=== PATIENT | male | born 1970 | race Caucasian/White ===

== ENCOUNTER → 2020-08-10 | Outpatient (CLI) | payer OTHER ==
--- NOTE | 2020-08-10 12:50 | Diagnostic Imaging Report ---
EXAMINATION: Thoracic spine at 12:21 PM. INDICATION: Back pain. TECHNIQUE/COMPARISON: Three views were obtained. There are no prior studies available for comparison. FINDINGS: The lateral view shows the vertebral body heights and alignment to be generally within normal limits. There is moderate degenerative disease throughout the thoracic spine, particularly in the lower thoracic region. There is no fracture or acute bony abnormality identified. There is no sign of a paraspinal mass. Incidental note is made of orthopedic plate and screw fixation devices securing long-standing fractures of the mid portions of the right 6th through 10th ribs. There are also healed slightly displaced fractures through the right 11th and 12th ribs. IMPRESSION: 1. There is no evidence for an acute bony abnormality. 2. There is moderate degenerative disease involving the thoracic spine, particularly the lower thoracic spine. 3. There are post surgical and post traumatic changes involving the bony thorax on the right. Dictated by: Dictated on workstation # [id number]
--- NOTE | 2020-08-10 13:41 | Diagnostic Imaging Report ---
INDICATION: Chronic back pain, fall 2.5 years ago, progressive in severity over the past 2 weeks. COMPARISON: I have no relevant comparison. FINDINGS: There is grade 1 retrolisthesis of L5 with respect to S1. The posterior cortices are off about 3 to 4 mm. The remaining levels are aligned anatomically. There is severe spondylosis at the L5-S1 greater than L4-L5 levels where there is disc space narrowing, endplate sclerosis, and predominantly anteriorly directed osteophytes. There is severe hypertrophic facet arthrosis at the L5-S1 level. No acute endplate irregularity. The oblique views show no appreciable spondylolysis defect. IMPRESSION: 1. Grade 1 degenerative retrolisthesis of L5 on S1. Severe lower lumbar spondylosis and facet arthrosis, most profound at the L5-S1 level. The malalignment and the magnitude of degenerative changes would commonly result in stenosis of the canal and/or neural foramina. If there are neurological symptoms present or as otherwise indicated, a nonemergent followup correlative noncontrasted lumbar MRI would be recommended. 2. An acute appearing abnormality is not identified. Dictated by: Dictated on workstation # [id number]
== END ==
LOC: RAD 11:28
PROVIDERS: ATTEND Nurse Practitioner
DX: M47.814 Spondylosis without myelopathy or radiculopathy, thoracic region (principal); M47.816 Spondylosis without myelopathy or radiculopathy, lumbar region; M47.817 Spondylosis without myelopathy or radiculopathy, lumbosacral region; M43.17 Spondylolisthesis, lumbosacral region; R19.7 Diarrhea, unspecified
CPT/HCPCS: 72072; 72110

== ENCOUNTER → 2021-07-24 | Outpatient (CLI) | payer BC, OTHER ==
[2021-07-24 09:37] LABS: BASOPHILS % (AUTO) 0 % (0-10); EOSINOPHILS % (AUTO) 0 % (0-10); HEMATOCRIT 46 % (40-54); HEMOGLOBIN 15.8 g/dL (13.3-17.7); LYMPHOCYTES # (AUTO) 1.7 10^3/uL (1.0-4.0); LYMPHOCYTES % (AUTO) 25 % (12-44); MEAN CORPUSCULAR HEMOGLOBIN 32 pg (25-34); MEAN CORPUSCULAR HGB CONC 34 g/dL (32-36); MEAN CORPUSCULAR VOLUME 93 fL (80-99); MEAN PLATELET VOLUME 8.9 fL (9.0-12.2); MONOCYTES # (AUTO) 0.6 10^3/uL (0.0-1.0); MONOCYTES % (AUTO) 9 % (0-12); NEUTROPHILS # (AUTO) 4.5 10^3/uL (1.8-7.8); NEUTROPHILS % (AUTO) 65 % (42-75); PLATELET COUNT 266 10^3/uL (130-400); WHITE BLOOD COUNT 6.9 10^3/uL (4.3-11.0)
[2021-07-24 09:50] LABS: ALBUMIN 4.2 GM/DL (3.2-4.5); BILIRUBIN,TOTAL 0.8 MG/DL (0.1-1.0); CALCIUM 9.7 MG/DL (8.5-10.1); CREATININE SERUM 0.93 MG/DL (0.60-1.30); POTASSIUM 4.5 MMOL/L (3.6-5.0); TOTAL PROTEIN 6.9 GM/DL (6.4-8.2)
--- NOTE | 2021-07-24 11:12 | Diagnostic Imaging Report ---
INDICATION: Abdominal pain. FINDINGS: KUB. There is no organomegaly. Bowel gas pattern appears normal without constipation. There is no evidence of bowel obstruction. No pathologic calcifications are seen. No bony abnormalities are noted. Old rib deformities are again demonstrated on the right. IMPRESSION: Normal KUB. Dictated by: Dictated on workstation # [id number]
== END ==
LOC: RAD 08:58
PROVIDERS: ATTEND Nurse Practitioner
DX: K59.00 Constipation, unspecified (principal); Z68.29 Body mass index [BMI] 29.0-29.9, adult
CPT/HCPCS: 36415; 74018; 80053; 84443; 85025

== ENCOUNTER → 2022-07-02 | Outpatient (CLI) | payer BC ==
[2022-07-02 15:47] LABS: BASOPHILS % (AUTO) 0 % (0-10); EOSINOPHILS # (AUTO) 0.1 10^3/uL (0.0-0.3); EOSINOPHILS % (AUTO) 2 % (0-10); HEMATOCRIT 45 % (40-54); LYMPHOCYTES # (AUTO) 1.9 X 10^3 (1.0-4.0); LYMPHOCYTES % (AUTO) 27 % (12-44); MEAN CORPUSCULAR HEMOGLOBIN 32 pg (25-34); MEAN CORPUSCULAR HGB CONC 33 g/dL (32-36); MEAN CORPUSCULAR VOLUME 97 fL (80-99); MEAN PLATELET VOLUME 8.9 fL (9.0-12.2); MONOCYTES # (AUTO) 0.6 X 10^3 (0.0-1.0); MONOCYTES % (AUTO) 9 % (0-12); NEUTROPHILS # (AUTO) 4.3 X 10^3 (1.8-7.8); NEUTROPHILS % (AUTO) 61 % (42-75); PLATELET COUNT 315 10^3/uL (130-400)
[2022-07-02 15:58] LABS: ALBUMIN 4.3 GM/DL (3.2-4.5); POTASSIUM 4.1 MMOL/L (3.6-5.0)
[2022-07-02 16:00] LABS: TOTAL PROTEIN 7.1 GM/DL (6.4-8.2)
[2022-07-02 16:02] LABS: BILIRUBIN,TOTAL 1.2 MG/DL (0.1-1.0)
[2022-07-02 16:04] LABS: CREATININE SERUM 0.89 MG/DL (0.60-1.30)
[2022-07-02 16:07] LABS: MAGNESIUM 1.7 MG/DL (1.6-2.4)
[2022-07-02 16:28] LABS: FREE T4 (FREE THYROXINE) 0.88 NG/DL (0.70-1.48)
--- NOTE | 2022-07-02 17:00 | Diagnostic Imaging Report ---
INDICATION: CHEST PAIN ANXIETY DISORDER COMPARISON: 07/24/2021. FINDINGS: Frontal and lateral views of the chest demonstrate normal heart size and pulmonary vascularity. The lungs are clear. There are no signs of infiltrate, pleural effusions or pneumothoraces. The visualized osseous structures show postop changes to the right ribs. IMPRESSION: 1. No acute process. No signs of infiltrates, effusions or pneumothoraces. Dictated by: Dictated on workstation # [id number]
== END ==
LOC: RAD 15:15
PROVIDERS: ATTEND Nurse Practitioner
DX: R07.89 Other chest pain (principal); F41.1 Generalized anxiety disorder
CPT/HCPCS: 36415; 71046; 80053; 80061; 82607; 83735; 84439; 84443; 85025